=== PATIENT | female | born 1980 | race African-American/Black ===

== ENCOUNTER 2017-05-02 22:14 | Emergency (ER) | payer SELFPAY | END 2017-05-02 23:03 | disposition home or self-care (01) | LOC: D.ER 22:14 | DX: F19.939 Other psychoactive substance use, unspecified with withdrawal, unspecified (principal); F17.200 Nicotine dependence, unspecified, uncomplicated ==

== ENCOUNTER 2018-02-11 20:08 | Emergency (ER) | payer MEDICAID ==
[~2018-02-11] VITALS: Ht 172.7 cm; Wt 90.9 kg
[2018-02-11 20:12] VITALS: Ht 172.7 cm; Wt 90.9 kg
[2018-02-11 22:20] VITALS: BP 136/87
== END 2018-02-11 22:20 | disposition home or self-care (01) ==
LOC: D.ER 20:08
DX: R51 Headache (principal); F17.200 Nicotine dependence, unspecified, uncomplicated

== ENCOUNTER 2018-05-17 12:14 | Emergency (ER) | payer MEDICAID ==
[2018-05-17 15:35] LABS: BASOPHILS 0.3 % (0-2); EOSINOPHILS 0.5 % (0-7); HEMATOCRIT 37.2 % (36.0-48.0); HEMOGLOBIN 12.6 g/dL (12-16); IMMATURE GRANULOCYTES 0.1 % (0-5); LYMPHOCYTES 33.2 % (15-50); MCH 31.3 pg (26.0-34.0); MCHC 33.9 g/dL (31.0-37.0); MCV 92.5 fL (80.0-100.0); MEAN PLATELET VOLUME 9.5 fL (7.4-10.4); MONOCYTES 7.7 % (2-11); NEUTROPHILS 58.2 % (40-80); PLATELET COUNT 305 10x3/uL (130-400); RBC 4.02 10x6/uL (4.00-5.40); RDW 15.8 % (11.5-14.5); WBC 7.3 10x3/uL (4.8-10.8)
[2018-05-17 15:56] LABS: ALKALINE PHOSPHATASE 35 U/L (46-116); ALT (SGPT) 15 U/L (10-68); BILIRUBIN - TOTAL 0.39 mg/dL (0.2-1.3); CALC OSMOLALITY 271 mosm/kg (275-300); CALCIUM 8.5 mg/dL (8.5-10.1); CARBON DIOXIDE 25.9 mmol/L (21.0-32.0); CHLORIDE - SERUM 101 mmol/L (98-107); CREATINE KINASE 132 UL (21-215); CREATININE - SERUM 1.1 mg/dL (0.6-1.3); GLUCOSE 85 mg/dL (74-106); POTASSIUM - SERUM 3.4 mmol/L (3.5-5.1); PROTEIN - SERUM 8.6 g/dL (6.4-8.2); SODIUM 137 mmol/L (136-145); UREA NITROGEN 9 mg/dL (7-18); eGFR NON AFRICAN AMERICAN 59 mL/min (90-120)
[2018-05-17 15:57] LABS: TROPONIN-I < 0.017 ng/mL (0.000-0.060)
== END 2018-05-17 17:49 | disposition home or self-care (01) ==
LOC: D.ER 12:14
PROVIDERS: Family Medicine
DX: S46.002A Unspecified injury of muscle(s) and tendon(s) of the rotator cuff of left shoulder, initial encounter (principal); X58.XXXA Exposure to other specified factors, initial encounter; Y93.89 Activity, other specified; Y92.019 Unspecified place in single-family (private) house as the place of occurrence of the external cause; M25.512 Pain in left shoulder; F17.200 Nicotine dependence, unspecified, uncomplicated

== ENCOUNTER 2020-02-24 12:56 | Emergency (ER) | payer OTHER ==
[~2020-02-24] VITALS: Ht 172.7 cm; Wt 81.8 kg
[~2020-02-24 12:56] MED LIST: ACETAMINOPHEN500 M1 PO; CYCLOBENZAPRINE10 MG PO; IBUPROFEN800 MG PO
[2020-02-24 13:25] VITALS: Ht 172.7 cm; Wt 81.8 kg
[2020-02-24] MEDS ORDERED: CELEXA40 MG (13:30)
[2020-02-24] MEDS ORDERED: LEVOXYL200 MCG (13:31)
[2020-02-24] MEDS ORDERED: TOPAMAX50 MG (13:31)
[2020-02-24 14:55] VITALS: BP 120/888
== END 2020-02-24 14:55 | disposition home or self-care (01) ==
LOC: D.ER 12:56
DX: S01.112A Laceration without foreign body of left eyelid and periocular area, initial encounter (principal); T14.8XXA Other injury of unspecified body region, initial encounter; W10.9XXA Fall (on) (from) unspecified stairs and steps, initial encounter; R51 Headache